=== PATIENT | female | born 1990 | race Hispanic/Latino ===

== ENCOUNTER 2019-03-12 12:37 | Inpatient (IN) | payer OTHER ==
[2019-03-12 13:40] VITALS: BMI 32.4
[2019-03-12] MEDS ORDERED: hydrALAZINE 20 MG/ML VIAL SLOW IVP PRN ×2 (13:53→16:31)
--- NOTE | 2019-03-12 14:20 | PDOC.FPROB ---
FMR OB H&P: HPI - History of Present Illness Chief Complaint: Contractions Indentification: 28yo at 39.0wks History of Present Illness: 28yo at 39.0wks presents with contractions that started this morning around 8am. Contractions are every 4-5min. Denies vaginal bleeding/discharge, LOF. 1cm dilated on 03/09/19. 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 - Social History Social History: Denies tobacco, alcohol and drug use - Family History Family History: Noncontributory FMR OB H&P: Medications - Current Home Medications: Medication Instructions Recorded Confirmed Type No.137/Iron/Folic Acd 1 tablet PO DAILY 10/17/13 03/12/19 History [ Vitamin Tablet] Allergies/Adverse Reactions: Allergies Allergy/AdvReac Type Severity Reaction Status Date / Time No Known Allergies Allergy Verified 10/17/13 01:02 FMR OB H&P: ROS - Review of Systems General: denies: fever/chills, fatigue Eyes: denies: vision changes, double vision Cardiovascular: denies: edema Respiratory: denies: shortness of breath Gastrointestinal: denies: abdominal pain, nausea Genitourinary (Female): reports: contractions. denies: vaginal discharge, vaginal bleeding Neurologic: denies: headache Integumentary: denies: rash, lesions FMR OB H&P: Vital Signs - Heart Tones Baseline: 130 Variability: moderate Acceleration: present Deceleration: absent Category: category 1 [place] contractions every: 2-4 min FMR OB H&P: Physical Exam - Physical Exam General: NAD, awake, alert and oriented HEENT: normocephalic and atraumatic, grossly normal vision, grossly normal hearing, oropharynx clear Neck: supple, trachea midline General: no respiratory distress Abdomen: soft, gravid Musculoskeletal: normal gait and station, no misalignment/asymmetry, no atrophy Neurological: no focal deficit Skin: no rash, good tugor Lymphatic: no unusual bruising or bleeding Psychiatric: intact recent and remote memory, good judgement and insight, normal mood and affect - Pelvic Exam SVE: FMR OB H&P: A/P Disposition: 28yo at 39.0wks presents with contractions Term sIUP - SVE , changed from 03/09/19 in clinic - GBS neg - FHTs 130 Cat 1 - Will recheck in 1-2 hours, pt safe to ambulate in mean time Discussion: Date/Time: 03/12/19 4255 This H&P was discussed with Dr. Pimentel who agrees with the above documentation and plan. Addendum - Attending - Attending Attestation Date/Time: 03/12/19 5789 I personally evaluated the patient and discussed the management with Dr. Kwong. I agree with the History, Examination, Assessment and Plan documented above.
--- NOTE | 2019-03-12 16:26 | PDOC.EVN ---
Event Note - Event Note Event Note: Returns from walking. Breathing with ctx. SVE 3/80/0 vtx. FHTs stable. [facility] q 3-5. Will adfmit for labor, Dr. Smith notified.
[2019-03-12] MEDS ORDERED: Lidocaine 1% (PF) 30 ML VIAL SC PRN (16:31)
[2019-03-12] MEDS ORDERED: Ondansetron PF 4 MG/2 ML Vial IVP PRN ×2 (16:31→19:42)
[2019-03-12] MEDS ORDERED: Promethazine HCl 25 MG/ML VIAL IM PRN ×2 (16:31→19:42)
[2019-03-12] MEDS ORDERED: NS / Oxytocin 40 units/1000ml 1,000 ML IV PRN (16:31)
[2019-03-12] MEDS: Lactated Ringer's 1,000 ML IV SCH ×4 (17:40→21:16)
[2019-03-12] MEDS ORDERED: Fentanyl 4 mcg/Bup 0.1% Cadd 100 ML ONE (18:02)
[2019-03-12 18:03] LABS: Hemoglobin 13.4 g/dL (12.0-16.0); Mean Corpuscular HGB CONC 34.1 g/dL (32.0-36.0); Mean Corpuscular Hemoglobin 31.4 pg (27.0-31.0); Mean Corpuscular Volume 91.9 fL (78.0-98.0); Mean Platelet Volume 10.4 fL (7.4-10.4); Platelet Count 175 thou/uL (130-400); RBC Distribution Width 13.7 % (11.5-14.5); Red Blood Cell (RBC) Count 4.27 mill/uL (4.20-5.40); White Blood Cell (WBC) Count 13.3 thou/uL (4.8-10.8)
[2019-03-12 18:42] LABS: HBSAg Index 0.22 S/CO (0-0.99); Hep B Surf Ag Non-Reactive S/CO (NonReactive); Syphilis Antibody Nonreactive (Nonreactive); Syphilis Antibody Index 0.06 S/CO (<1.00 Non-Reactive)
[2019-03-12] MEDS ORDERED: Lactated Ringer's 500 ML IV PRN (19:42)
[2019-03-12] MEDS ORDERED: Naloxone HCl 0.4 mg/ml Vial IVP PRN ×2 (19:42)
[2019-03-12] MEDS ORDERED: ePHEDrine/0.9% NaCl/PF SYRINGE 50 mg/10 ml SLOW IVP PRN (19:42)
[2019-03-12] MEDS ORDERED: Acetaminophen 325 MG TAB PO PRN (19:42)
[2019-03-12] MEDS ORDERED: diphenhydrAMINE 50 MG/ML VIAL IVP PRN (19:42)
[2019-03-12] MEDS ORDERED: Fentanyl 4 mcg/Bupivacaine 0.1% Cassette 100 ML EPIDURAL SCH (19:45)
[2019-03-12] MEDS ORDERED: Communication Order-Pharmacy FS SCH (19:45)
--- NOTE | 2019-03-12 20:25 | PDOC.EVN ---
Event Note - Event Note Event Note: Asked to AROM by Dr. Smith. SVE /0, vtx. AROM shows meconium. FHTs reassuring. [facility] q 3-4 mins.
[2019-03-12] MEDS ORDERED: NS w/ Oxytocin 10 units 500 ML ONE (21:08)
[2019-03-13] MEDS ORDERED: Misoprostol 200 MCG TAB ONE (00:11)
--- NOTE | 2019-03-13 01:06 | PDOC.OPDEL ---
OB Operative/Delivery Note Delivery Dr/Surgeon: Milagro Tyler DO Pre-Delivery Diagnosis: active labor Procedure/Post Delivery Dx: spontaneous vaginal delivery Weeks gestation: 39 Anesthesia: epidural - Findings A Sex: female - 1 min: 9 - 5 min: 9 - Additional Findings/Plan Placenta delivered: spontaneous Repaired Obstetrical Laceration: 1st degree Estimated blood loss: QBL 105 cc Compilations/Other Findings: Infant in [place] position Normal appearing placenta Thin meconium stained amniotic fluid Post delivery plan: routine recovery
[2019-03-13] MEDS ORDERED: NS / Oxytocin 40 units/1000ml 1,000 ML IV SCH (02:45)
[2019-03-13] MEDS ORDERED: Methylergonovine 0.2 MG/ML VIAL IM PRN (02:45)
[2019-03-13] MEDS ORDERED: Milk Of Magnesia 30 ML UDCUP PO PRN (02:45)
[2019-03-13] MEDS ORDERED: Misoprostol 200 MCG TAB VAG PRN (02:45)
[2019-03-13] MEDS ORDERED: Lanolin Ointment 7 GM TUBE TOP PRN (02:45)
[2019-03-13] MEDS ORDERED: Bisacodyl 10 MG SUPP PR PRN (02:45)
[2019-03-13] MEDS ORDERED: HYDROcodone/Acetaminophen 5/325 mg Tablet PO PRN (02:45)
[2019-03-13] MEDS ORDERED: hydrALAZINE 20 MG/ML VIAL SLOW IVP PRN (02:45)
[2019-03-13] MEDS ORDERED: Preparation H Ointment 57 gram tube RC PRN (02:45)
[2019-03-13] MEDS: Ibuprofen 800 MG TAB PO SCH ×3 (03:14→17:51)
[2019-03-13] MEDS: Docusate Calcium (SURFAK) 240 MG CAP PO SCH ×2 (08:55→22:06)
[2019-03-13] MEDS: Prenatal Vitamin 1 TAB PO SCH (08:55)
[2019-03-13] MEDS: Lactated Ringer's 1,000 ML IV SCH (10:48)
[2019-03-14] MEDS: Ibuprofen 800 MG TAB PO SCH ×3 (01:17→21:15)
--- NOTE | 2019-03-14 07:24 | PDOC.PP ---
Post Progress Note Post Day #: 1 Subjective: No concerns. Breast feeding. Pain and lochia minimal. receiving phototherapy over night. PO intake tolerated: yes Flatus: yes Ambulation: yes Vital Signs (12 hours) Temp Pulse Resp BP Pulse Ox 03/14/19 01:15 98.5 F 62 18 104/55 L 03/13/19 20:00 98.7 F 72 12 108/59 L 98 Weight Weight 195 lb - Physical Examination General: NAD Cardiovascular: RRR Respiratory: non-labored breathing Abdominal: no distention, appropriately TTP Fundus firm & at: below umbilicus Extremities: negative homans (B) Neurological: no gross focal deficits Psychiatric: A&Ox3, normal affect Result Diagrams: 03/12/19 17:45 Additional Labs: Post Labs Blood Type O POSITIVE 03/12/19 17:45 Hep Bs Antigen Non-Reactive S/CO (NonReactive) 03/12/19 17:45 (1) Vaginal delivery Status: Acute - Assessment/Plan PPD1 VSSAF Continue PP care Plan for possible d/c today if infant ready after phototherapy.
[2019-03-14] MEDS: Docusate Calcium (SURFAK) 240 MG CAP PO SCH ×2 (09:27→21:15)
[2019-03-14] MEDS: Prenatal Vitamin 1 TAB PO SCH (09:27)
[2019-03-15] MEDS: Ibuprofen 800 MG TAB PO SCH ×2 (06:19→14:13)
--- NOTE | 2019-03-15 08:14 | PDOC.PP ---
Post Progress Note Post Day #: 2 Subjective: No concerns. Minimal pain and lochia. Breast feeding. bili pending this AM. PO intake tolerated: yes Flatus: yes Ambulation: yes Weight Weight 195 lb - Physical Examination General: NAD Cardiovascular: RRR Respiratory: non-labored breathing Abdominal: no distention, appropriately TTP Fundus firm & at: below umb Neurological: no gross focal deficits Psychiatric: A&Ox3, normal affect Result Diagrams: 03/12/19 17:45 Additional Labs: Post Labs Blood Type O POSITIVE 03/12/19 17:45 Hep Bs Antigen Non-Reactive S/CO (NonReactive) 03/12/19 17:45 (1) Vaginal delivery Status: Acute - Assessment/Plan PPD2 VSSAF Plan for d/c today, possible BB if infant required to stay
[2019-03-15 08:22] VITALS: BP 86/50; TEMP 98.4
[2019-03-15] MEDS: Docusate Calcium (SURFAK) 240 MG CAP PO SCH (09:38)
[2019-03-15] MEDS: Prenatal Vitamin 1 TAB PO SCH (09:38)
== END 2019-03-15 14:35 | disposition home or self-care (01) | DRG 807 ==
LOC: L&D/OP 12:37 → L&D 16:31 → 3SW 03-13 11:46
PROVIDERS: ADMIT Obstetrics & Gynecology; ATTEND Obstetrics & Gynecology
PROC: 10E0XZZ Delivery of Products of Conception, External Approach (ICD-10-PCS; principal; 2019-03-13)
PROC: 10907ZC Drainage of Amniotic Fluid, Therapeutic from Products of Conception, Via Natural or Artificial Opening (ICD-10-PCS; 2019-03-13)
PROC: 0HQ9XZZ Repair Perineum Skin, External Approach (ICD-10-PCS; 2019-03-13)
DX: O77.0 Labor and delivery complicated by meconium in amniotic fluid (principal); Z37.0 Single live birth; O70.0 First degree perineal laceration during delivery; Z3A.39 39 weeks gestation of pregnancy
CPT/HCPCS: 36415; 51702; 85027; 86780; 86850; 86900; 86901; 87340; 99285; J2405; J2590